=== PATIENT | male | born 1970 | race Caucasian/White ===

== ENCOUNTER 2016-12-21 06:45 | Day surgery (SDC) | payer BC ==
[~2016-12-21 06:45] MED LIST: Lactated Ringers 1,000 ML IV SCH; Sodium Chloride 0.9% 10 ML Syringe FLUSH PRN
[2016-12-21] MEDS ORDERED: Lidocaine 2% 100 MG/5 ML Syringe IVPUSH ONE (08:00)
[2016-12-21] MEDS ORDERED: Midazolam 1 MG/ML 2 ML SDV IV ONE (08:00)
[2016-12-21] MEDS ORDERED: fentaNYL 100 MCG/2 ML SDV IV ONE (08:00)
[2016-12-21] MEDS ORDERED: Propofol 200 MG/20 ML SDV IV ONE (08:00)
[2016-12-21] MEDS ORDERED: Ketorolac 30 MG/ML SDV IVPUSH ONE (08:00)
[2016-12-21] MEDS ORDERED: Dexamethasone 4 MG/ML 5 ML MDV IVPUSH ONE (08:00)
[2016-12-21] MEDS ORDERED: ceFAZolin 2 GM in Sodium Chloride 0.9% 100 ML IV ONE (08:00)
[2016-12-21] MEDS ORDERED: ceFAZolin 2 GM in Premix Bag 1 BAG IV ONE (08:00)
[2016-12-21] MEDS ORDERED: Ondansetron 4 MG/2 ML SDV IVPUSH ONE (08:00)
[2016-12-21] MEDS ORDERED: Bupivacaine 0.5% 30 ML SDV INJECT ONE (08:31)
[2016-12-21] MEDS ORDERED: Lidocaine 1% with EPINEPHrine 1:100,000 20 ML MDV INJECT ONE (08:31)
--- NOTE | 2016-12-21 09:05 | PCM.OPNOTE ---
- General Post-Op/Procedure Note Date of Surgery/Procedure: 12/21/16 Operative Procedure(s): left ingiunal hernia repair with mesh Findings: indirect hernia Pre Op Diagnosis: lih Post-Op Diagnosis: Same Anesthesia Technique: General ET tube, Local (8 ml 1 % lido with epi/0.5% buvipicaine) Primary Surgeon: Collin Chávez Anesthesia Provider: Ghazal Colón Pathology: none EBL in mLs: 1 Complications: None Condition: Good Free Text/Narrative:: see dictation [id number]
--- NOTE | 2016-12-21 10:36 | OR ---
DATE OF OPERATION: 12/21/2016 SURGEON: Collin Chávez MD PROCEDURE PERFORMED: Left inguinal hernia repair. PREOPERATIVE DIAGNOSIS: Left inguinal hernia. POSTOPERATIVE DIAGNOSIS: Left inguinal hernia. INDICATIONS FOR PROCEDURE: This is a 46-year-old white male, who presented to the clinic with a painful reducible bulge in his left groin. He was offered and accepted hernia repair. INTRAOPERATIVE FINDINGS: As follows; an indirect hernia was encountered. This was repaired with a Bard mesh PerFix plug, size large, reference #[id number], lot number [id number], expiration date 09/2018. DESCRIPTION OF OPERATION: After an excellent general anesthetic was administered via LMA, the patient was prepped and draped in the usual sterile manner. The area of our planned incision site, which is essentially an intersect point, approximately skilled nursing along the inguinal ligament, skilled nursing between the anterior superior iliac spine and the symphysis pubis was infiltrated with our local mixture. An incision was made with a #15 scalpel blade. The underlying subcu fat was divided using electrocautery. The superficial inferior epigastric vessels were clamped, divided, and tied with 2-0 Vicryl ties. On exposing the aponeurosis, more local was injected. A total of 8 mL was used. A stab incision was made through the aponeurosis and carried out through the external inguinal ring. The cord was mobilized, and in mobilizing the inguinal nerve, we noticed that it had been transected and dividing the aponeurosis. This was then dissected back, clamped, divided, and tied with 2-0 Vicryl tie. The cord was then mobilized and controlled with a 1/4-inch Sarah drain. Two cord lipomas were dissected free from along the cord, and these were clamped, divided, and tied with an 0 Vicryl tie. It was apparent this patient did have a defect in his internal ring. This accommodated a large plug, which was inserted and tacked into position using interrupted 2-0 Prolene tacked into the aponeurosis as well as the inguinal ligament. Once this was completed, the overlay keyhole mesh was placed on the floor of the inguinal canal, and starting at the level of the symphysis pubis was tacked along the inguinal ligament until we came lateral to the internal ring. The keyhole was closed with running 2-0 Prolene as well. SorbaFix Tacker was then used to tack the mesh to the floor of the inguinal canal. The aponeurosis was closed with a running 3-0 Vicryl; 3-0 Vicryl was used to approximate the Rosalie's fascia, and the skin was closed with daniel. Needle, sponge, and instrument counts were reported as correct. The patient was taken to recovery room in good condition. /[id number] /MODL
[2016-12-21 14:39] VITALS: BP 135/92
== END 2016-12-21 11:00 | disposition home or self-care (01) ==
LOC: FB.SDS 06:45
PROVIDERS: ATTEND Surgery
DX: K40.90 Unilateral inguinal hernia, without obstruction or gangrene, not specified as recurrent (principal); F17.210 Nicotine dependence, cigarettes, uncomplicated; Z79.899 Other long term (current) drug therapy; Z98.890 Other specified postprocedural states
CPT/HCPCS: 49505; C1781; J0690; J1100; J1885; J2250; J2405; J2704; J3010; J7120

== ENCOUNTER 2017-10-29 13:39 | Emergency (ER) | payer BC ==
--- NOTE | 2017-10-29 14:36 | EDM.PDOC ---
ED HPI GENERAL MEDICAL PROBLEM - General Chief Complaint: Abdominal Pain Stated Complaint: LEFT SIDE PAIN Time Seen by Provider: 10/29/17 13:46 Source of Information: Reports: Patient History Limitations: Reports: No Limitations - History of Present Illness Onset: Sudden Onset Date: 10/29/17 Onset Time: 05:00 Duration: Hour(s): Location: Reports: Pelvis Quality: Reports: Ache, Stabbing Improves with: Reports: Rest Worsens with: Reports: Movement Context: Reports: Other (suuden onset of left groin pain, lasting seconds) Associated Symptoms: Reports: No Other Symptoms Left Abdominal Pain Score (Numeric/FACES): 8 - Related Data Allergies Allergy/AdvReac Type Severity Reaction Status Date / Time No Known Allergies Allergy Verified 10/29/17 13:45 Home Meds: Home Meds NK [No Known Home Meds] 10/29/17 [History] Past Medical History Gastrointestinal History: Reports: GERD Genitourinary History: Reports: None 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 Musculoskeletal History: Reports: Other (See Below) Other Musculoskeletal History: ARTHRALGIAS Neurological History: Reports: None Psychiatric History: Reports: None Endocrine/Metabolic History: Reports: None Hematologic History: Reports: None Immunologic History: Reports: None Oncologic (Cancer) History: Reports: None Dermatologic History: Reports: Eczema - Past Surgical History Head Surgeries/Procedures: Reports: None HEENT Surgical History: Reports: Other (See Below) Other HEENT Surgeries/Procedures: NODULE REMOVED FROM VOCAL CORD OCTOBER 2016 GI Surgical History: Reports: Colonoscopy, Hernia Repair/Other Social & Family History - Tobacco Use Smoking Status *Q: Current Every Day Smoker Years of Tobacco use: 3 Packs/Tins Daily: 1 - Caffeine Use Caffeine Use: Reports: Coffee - Alcohol Use Days Per Week of Alcohol Use: 7 Number of Drinks Per Day: 3 Total Drinks Per Week: 21 - Recreational Drug Use Recreational Drug Use: No Drug Use in Last 12 Months: No ED ROS GENERAL - Review of Systems Review Of Systems: See Below Constitutional: Reports: No Symptoms HEENT: Reports: No Symptoms Respiratory: Reports: No Symptoms Cardiovascular: Reports: No Symptoms Endocrine: Reports: No Symptoms GI/Abdominal: Reports: No Symptoms : Reports: No Symptoms Musculoskeletal: Reports: Other (left keyla pain lasting seconds only) Skin: Reports: No Symptoms Neurological: Reports: No Symptoms Psychiatric: Reports: No Symptoms Hematologic/Lymphatic: Reports: No Symptoms Immunologic: Reports: No Symptoms ED EXAM, RENAL/ - Physical Exam Exam: See Below Exam Limited By: No Limitations General Appearance: Alert, WD/WN, No Apparent Distress Eye Exam: Bilateral Eye: Normal Inspection Ears: Normal External Exam Nose: Normal Inspection Throat/Mouth: Normal Inspection Head: Atraumatic, Normocephalic Neck: Normal Inspection, Supple, Non-Tender Respiratory/Chest: No Respiratory Distress, Lungs Clear, Normal Breath Sounds Cardiovascular: Normal Peripheral Pulses, Regular Rate, Rhythm GI/Abdominal: Normal Bowel Sounds, Soft, Non-Tender (Male) Exam: No Hernia, Normal Inspection (well healing scar left groin.) Rectal (Males) Exam: Deferred Back Exam: Normal Inspection Extremities: Normal Inspection Neurological: Alert, Oriented, CN II-XII Intact, Normal Cognition Psychiatric: Normal Affect, Normal Mood Skin Exam: Warm, Dry, Intact, Normal Color, No Rash Lymphatic: No Adenopathy Course - Vital Signs Text/Narrative:: Impression: Left groing pain Pt refused W/U of left groin pain Plan: D/C with instructions Last Recorded V/S: Last Vital Signs Temp 36.4 C 10/29/17 13:46 Pulse 76 10/29/17 13:46 Resp 18 10/29/17 13:46 BP 150/99 H 10/29/17 13:46 Pulse Ox 100 10/29/17 13:46 - Orders/Labs/Meds Labs: Laboratory Tests 10/29/17 Range/Units 13:54 Urine Color Yellow (YELLOW) Urine Appearance Clear (CLEAR) Urine pH 6.5 (5.0-6.5) Ur Specific [place] 1.005 L (1.010-1.025) Urine Protein Negative (NEGATIVE) mg/dL Urine Glucose (UA) Normal (NEGATIVE) mg/dL Urine Ketones Negative (NEGATIVE) mg/dL Urine Occult Blood Negative (NEGATIVE) Urine Nitrite Negative (NEGATIVE) Urine Bilirubin Negative (NEGATIVE) Urine Urobilinogen Normal (NEGATIVE) mg/dL Ur Leukocyte Esterase Negative (NEGATIVE) Urine RBC 0-5 (0) Urine WBC 0-5 (0) Ur Squamous Epith Cells Occasional (NS,R,O) Urine Bacteria Rare H (NS) Departure - Departure Time of Disposition: 14:32 Disposition: Home, Self-Care 01 Condition: Good Clinical Impression: Left groin pain - Discharge Information Referrals: Eugenio Lerma PA [Primary Care Provider] - Forms: ED Department Discharge Additional Instructions: You preferred to f/u with your PMD. Please come back if your symptoms get acutely worse. Please take Motrin for pain for now.
[2017-10-29 14:41] VITALS: BP 146/87
== END 2017-10-29 14:40 | disposition home or self-care (01) ==
LOC: FB.ED 13:39
DX: R10.32 Left lower quadrant pain (principal); F17.210 Nicotine dependence, cigarettes, uncomplicated
CPT/HCPCS: 81001; 99284

== ENCOUNTER 2021-05-16 13:49 | Emergency (ER) | payer BC ==
[2021-05-16] MEDS ORDERED: Ketorolac 30 MG/ML SDV IM ONE (14:04)
--- NOTE | 2021-05-16 14:38 | EDM.PDOC ---
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 Musculoskeletal History: Reports: Other (See Below) Other Musculoskeletal History: ARTHRALGIAS Neurological History: Reports: None Psychiatric History: Reports: None Endocrine/Metabolic History: Reports: None Hematologic History: Reports: None Immunologic History: Reports: None Oncologic (Cancer) History: Reports: None Dermatologic History: Reports: Eczema - Past Surgical History Head Surgeries/Procedures: Reports: None HEENT Surgical History: Reports: Other (See Below) Other HEENT Surgeries/Procedures: NODULE REMOVED FROM VOCAL CORD OCTOBER 2016 GI Surgical History: Reports: Colonoscopy, Hernia Repair/Other Social & Family History - Caffeine Use Caffeine Use: Reports: Coffee Review of Systems - Review of Systems Review Of Systems: See Below Constitutional: Reports: No Symptoms Eyes: Reports: No Symptoms Ears: Reports: No Symptoms Nose: Reports: No Symptoms Mouth/Throat: Reports: No Symptoms Respiratory: Reports: No Symptoms Cardiovascular: Reports: No Symptoms GI/Abdominal: Reports: No Symptoms Genitourinary: Reports: No Symptoms Musculoskeletal: Reports: Hand Pain Skin: Reports: No Symptoms Neurological: Reports: No Symptoms Psychiatric: Reports: No Symptoms ED EXAM, GENERAL - Physical Exam Exam: See Below Exam Limited By: No Limitations General Appearance: Alert, WD/WN, No Apparent Distress Eye Exam: Bilateral Eye: EOMI Head: Atraumatic, Normocephalic Neck: Normal Inspection Respiratory/Chest: No Respiratory Distress, Lungs Clear Cardiovascular: Normal Peripheral Pulses, Regular Rate, Rhythm, No Edema Peripheral Pulses: 2+: Radial (L), Radial (R), Dorsalis Pedis (L), Dorsalis Pedis (R) GI/Abdominal: Normal Bowel Sounds, Soft, Non-Tender Back Exam: Normal Inspection. No: CVA Tenderness (R), CVA Tenderness (L) Extremities: Other (Significant swelling of the left distal third digit with ecchymosis under the nail bed. Flexion and extension of the distal phalanx is intact, sensation intact, capillary refill less than 2 seconds) Neurological: Alert, Oriented, CN II-XII Intact, Normal Cognition Psychiatric: Normal Affect, Normal Mood Skin Exam: Warm, Dry, Intact Course - Vital Signs Text/Narrative:: X-ray of the distal right third digit shows a fracture of the distal phalanx. There is no open skin and no avulsion of the finger. Patient's finger will be splinted with the distal phalanx in extension. Patient was given 30 mg Toradol IM. Departure - Departure Time of Disposition: 14:39 Disposition: Home, Self-Care 01 Condition: Good Clinical Impression: Fracture, finger, distal phalanx - Discharge Information *PRESCRIPTION DRUG MONITORING PROGRAM REVIEWED*: Not Applicable *COPY OF PRESCRIPTION DRUG MONITORING REPORT IN PATIENT CARLA: Not Applicable Instructions: Finger Fracture, Adult Additional Instructions: Patient instructed to rest, ice, elevate, keep the splint in place except for showering for approximately 6 weeks. Patient advised to try to limit use of the hand particularly the third digit for the next 6 weeks. Patient advised to alternate Tylenol and ibuprofen for pain control and to follow-up with his primary care physician.
[2021-05-16 16:17] VITALS: BP 143/105; PULSE 103
== END 2021-05-16 14:45 | disposition home or self-care (01) ==
LOC: FB.ED 13:49
DX: S62.632A Displaced fracture of distal phalanx of right middle finger, initial encounter for closed fracture (principal); W22.09XA Striking against other stationary object, initial encounter; Y92.59 Other trade areas as the place of occurrence of the external cause
CPT/HCPCS: 73140-F7; 96372; 99283-25; J1885

== ENCOUNTER 2021-09-12 09:27 | Emergency (ER) | payer BC ==
[2021-09-12 09:53] VITALS: PULSE 72
--- NOTE | 2021-09-12 09:54 | EDM.PDOC ---
ED HPI GENERAL MEDICAL PROBLEM - General Stated Complaint: neck pain Time Seen by Provider: 09/12/21 09:40 Source of Information: Reports: Patient History Limitations: Reports: No Limitations - History of Present Illness INITIAL COMMENTS - FREE TEXT/NARRATIVE: 51-year-old male who has had bilateral posterior jaw pain for about the past 23 days and this morning and approximately 9 AM he was beginning to eat breakfast and had taken one bite and had pain in his left posterior jaw and felt like there was swelling in the left posterior jaw and just below and in front of his left ear. He felt that came on rather quickly. That pain is rated by him as a 9/10. It is a sharp pain and very sore to touch and when he moves his jaw. The other pains are a more mild pain that he would rated as a 3/10 and are constant and nagging kind of aching pains that do seem to be worse with activity but it seems to be present even when there is no activity.he has had no chest pain associated with this bilateral jaw pain. There has been no arm or back pain. He has had no shortness of breath. There has been no nausea or vomiting. No trouble swallowing. No fevers or chills. He has had normal energy level. There are no other associated signs or symptoms. There are no other modifying factors. It should be noted that the patient's brother who is 2 years younger than him recently had an [place] and has caused the patient to be very concerned about his heart. 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 Left Ear Pain Score (Numeric/FACES): 9 - Related Data Allergies Allergy/AdvReac Type Severity Reaction Status Date / Time No Known Allergies Allergy Verified 09/12/21 10:06 Home Meds: Home Meds cephALEXin [Keflex] 750 mg PO TID 7 Days #63 cap 09/12/21 [Rx] Past Medical History Cardiovascular History: Reports: High Cholesterol Gastrointestinal History: Reports: GERD Musculoskeletal History: Reports: Fracture, Other (See Below) Other Musculoskeletal History: ARTHRALGIAS Dermatologic History: Reports: Eczema - Past Surgical History HEENT Surgical History: Reports: Other (See Below) Other HEENT Surgeries/Procedures: NODULE REMOVED FROM VOCAL CORD OCTOBER 2016 GI Surgical History: Reports: Colonoscopy, Hernia Repair/Other (2) Social & Family History - Family History Cardiac: Reports: CAD (Brother), [place] (Brother) - Tobacco Use Tobacco Use Status *Q: Current Every Day Tobacco User - Caffeine Use Caffeine Use: Reports: Coffee - Alcohol Use Alcohol Use History: Yes Alcohol Use Frequency: Daily (States that he drinks beer daily.) - Living Situation & Occupation Occupation: Employed (Works for [employer]) ED ROS GENERAL - Review of Systems Review Of Systems: See Below Constitutional: Denies: Fever, Chills HEENT: Reports: Other (Bilateral jaw pain. Left jaw and preauricular swelling.). Denies: Throat Pain, Throat Swelling Respiratory: Denies: Shortness of Breath, Cough Cardiovascular: Denies: Chest Pain, Palpitations Endocrine: Denies: Fatigue GI/Abdominal: Denies: Nausea, Vomiting : Denies: Dysuria Musculoskeletal: Reports: Neck Pain (Left posterior jaw pain and neck pain in the area below his left ear). Denies: Arm Pain, Back Pain Skin: Denies: Diaphoresis, Rash Neurological: Denies: Dizziness, Headache Hematologic/Lymphatic: Denies: Easy Bleeding ED EXAM, GENERAL - Physical Exam Exam: See Below Exam Limited By: No Limitations General Appearance: Alert, WD/WN, Mild Distress (Appears in some pain.) Eye Exam: Bilateral Eye: EOMI, Normal Inspection, PERRL Ears: Normal External Exam, Hearing Grossly Normal, Other (Swelling and the left preauricular and neck just inferior to the left ear and jaw. This is tender to palpation. It appears to be in the area of the parotid gland. He also is reporting pain at the opening of the parotid duct both sides actually more on the left than the right.) Ear Exam: Bilateral Ear: Auricle Normal Nose: Normal Inspection, Normal Mucosa, No Blood Throat/Mouth: Normal Voice, No Airway Compromise, Other (No posterior pharyngeal erythema or edema. No discharge from Stensen's duct bilaterally.) Head: Atraumatic, Facial Swelling (As above.) Neck: Normal Inspection, Supple, Non-Tender, Full Range of Motion Respiratory/Chest: No Respiratory Distress, Lungs Clear, Normal Breath Sounds, No Accessory Muscle Use, Chest Non-Tender Cardiovascular: Normal Peripheral Pulses, Regular Rate, Rhythm, No Murmur Peripheral Pulses: 2+: Radial (L), Radial (R) GI/Abdominal: Normal Bowel Sounds, Soft, Non-Tender Back Exam: Normal Inspection Extremities: Normal Inspection, Normal Range of Motion, Non-Tender, No Pedal Edema, Normal Capillary Refill Neurological: Alert, Oriented, CN II-XII Intact, Normal Cognition, No Motor/Sensory Deficits Psychiatric: Normal Affect Skin Exam: Warm, Dry, Intact, Normal Color, No Rash #1 Interpretation EKG Date: 09/12/21 Time: 10:17 Rhythm: NSR Rate (Beats/Min): 65 [place]: Normal P-Wave: Present QRS: Normal ST-T: Normal QT: Normal Comparison: NA - No Prior EKG EKG Interpretation Comments: Normal EKG Course - Vital Signs Last Recorded V/S: Last Vital Signs Temp 36.8 C 09/12/21 09:27 Pulse 72 09/12/21 09:27 Resp 18 09/12/21 09:27 BP 158/93 H 09/12/21 09:27 Pulse Ox 97 09/12/21 09:27 - Orders/Labs/Meds Orders: Active Orders 24 hr Category Date Time Status EKG Documentation Completion [RC] ASDIRECTED Care 09/12/21 10:13 Active EKG 12 Lead [EK] Routine Ther 09/12/21 10:12 Ordered Labs: Laboratory Tests 09/12/21 09/12/21 09/12/21 Range/Units 10:20 10:20 10:20 Hemoglobin A1c 5.5 (<5.7) % Troponin I < 4.0 L (4.0-60.3) pg/mL Triglycerides 356 H (15-150) mg/dL Cholesterol 282 H (50-200) mg/dL LDL Cholesterol Direct 165 H (60-130) mg/dL HDL Cholesterol 57 (40-75) mg/dL Cholesterol/HDL Ratio 4.9 (0-5) - Re-Assessments/Exams Free Text/Narrative Re-Assessment/Exam: 09/12/21 11:00: Patient's EKG was normal. The troponin is normal. The patient is being followed by cardiology per his report, he does have a stress echo scheduled by this teacher physically impaired on of this coming week. The patient was supposed to get about possibly the hemoglobin and lipid panel performed through his primary provider for this teacher physically impaired but that has not been done as of yet and the patient requested that we do the lipid panel in the car costally and hemoglobin today. That was performed in the glycosylated hemoglobin was 5.5. The lipid panel showed elevations in his cholesterol, triglycerides and LDL cholesterol. I do not feel that the jaw pain is related anything of a cardiac etiology. He does appear to have sialoadenitis and actually having bilateral pain complaints but he did have swelling of his left parotid gland today. I feel this is likely either a sialolith or an acute infection of the parotid gland. I will have the patient use sialagogues, increase his fluid intake and I will also place the patient on antibiotics (Keflex 500 mg). I did convey the results of the lipid panel in the glycosylated hemoglobin to the patient's well. Departure - Departure Time of Disposition: 11:25 Disposition: Home, Self-Care 01 Condition: Good Clinical Impression: Acute parotitis - Discharge Information Prescriptions: cephALEXin [Keflex] 750 mg PO TID 7 Days #63 cap Instructions: Parotitis, [id number] Referrals: Eugenio Lerma PA [Primary Care Provider] - Additional Instructions: Your EKG was reassuringly normal. Your heart enzyme test was normal as well. Your lipid panel did show elevated cholesterol, elevated triglycerides and elevated LDL cholesterol. Your hemoglobin A1c was 5.5 or normal. I do not feel that your jaw pain is related to a problem with your heart. As we discussed, you appear to have an acute infection of your parotid gland or it is possible that you have a stone in your parotid gland causing some pain. You should increase your fluid intake. You should use sour candy or gum that will increase your saliva production. Take ibuprofen 600-800 mg by mouth every 6-8 hours as needed for pain. Medication as prescribed (Keflex 250 mg). This prescription was sent electronically to [facility] in [place]. You need to begin taking this medication today. Keep your scheduled tests and follow-up with your teacher physically impaired. Back to the emergency department for increasing pain, trouble swallowing, trouble breathing, high fever, chest pain or difficulty breathing, severe weakness or any other concerning signs or symptoms. Sepsis Event Note (ED) - Focused Exam Vital Signs: Vital Signs Temp Pulse Resp BP Pulse Ox 09/12/21 09:27 36.8 C 72 18 158/93 H 97 - My Orders Last 24 Hours: My Active Orders 09/12/21 10:12 EKG 12 Lead [EK] Routine 09/12/21 10:13 EKG Documentation Completion [RC] ASDIRECTED - Assessment/Plan Last 24 Hours: My Active Orders 09/12/21 10:12 EKG 12 Lead [EK] Routine 09/12/21 10:13 EKG Documentation Completion [RC] ASDIRECTED
[2021-09-12 10:42] LABS: HEMOGLOBIN A1C 5.5 % (<5.7)
[2021-09-12 20:07] VITALS: BP 150/90
== END 2021-09-12 11:50 | disposition home or self-care (01) ==
LOC: FB.ED 09:27
DX: K11.21 Acute sialoadenitis (principal); Z72.0 Tobacco use
CPT/HCPCS: 36415; 80061; 83036; 84484; 93005; 99283-25